=== PATIENT | female | born 1960 | race Caucasian/White ===

== ENCOUNTER 2021-09-30 09:19 | Outpatient (CLI) | payer OTHER, SELFPAY ==
[2021-09-30 09:30] LABS: Basophils Absolute Auto 0.08 K/mm3 (0.00-0.10); Eosinophils Absolute Auto 0.17 K/mm3 (0.02-0.50); Eosinophils Percent Auto 2.2 % (1.0-6.0); Hematocrit 44.6 % (35.0-49.0); Hemoglobin 14.3 g/dL (12.0-15.0); Immature Granulocyte Absolute 0.03 K/mm3 (0.00-0.00); Immature Granulocyte Percent A 0.4 % (0.0-0.0); Lymphocytes Percent Auto 35.9 % (18.0-42.0); Mean Corpuscular HGB Conc 32.1 g/dL (32.0-36.0); Mean Corpuscular Hemoglobin 28.1 pg (27.0-31.0); Mean Corpuscular Volume 87.8 fL (78.0-102.0); Mean Platelet Volume 10.1 fl (9.2-11.8); Monocytes Absolute Auto 0.41 K/mm3 (0.10-0.90); Monocytes Percent Auto 5.2 % (2.0-11.0); Neutrophils Absolute Auto 4.3 K/mm3 (1.7-7.2); Neutrophils Percent Auto 55.3 % (50.0-70.0); Platelet Count Result 254 K/mm3 (150-420); Red Blood Count 5.08 M/mm3 (4.20-5.40); Red Cell Distribution Width 13.2 % (11.6-14.4); White Blood Count 7.8 K/mm3 (4.8-10.8)
[2021-09-30 09:44] LABS: Hemoglobin A1C 9.3 % (<5.7)
[2021-09-30 10:18] LABS: Alanine Aminotransferase 112 U/L (14-59); Albumin Level 3.4 g/dL (3.4-5.0); Alkaline Phosphatase 107 U/L (46-116); Anion Gap 7 mmol/L (8-16); Aspartate Amino Transferase 66 U/L (15-37); Bilirubin,Total 0.5 mg/dL (0.00-1.00); Blood Urea Nitrogen 11 mg/dL (7-18); Calcium 9.1 mg/dL (8.5-10.1); Carbon Dioxide 30 mmol/L (21-32); Chloride 102 mmol/L (98-108); Cholesterol 228 mg/dL (0-200); Estimated Glomerular Filt Rate > 60; Glucose 221 mg/dL (70-99); HDL Direct 43 mg/dL (40-60); LDL Cholesterol Calculated 155 mg/dL (<130); Osmolality Calculated 294 mOsm/kg (285-295); Potassium 4.1 mmol/L (3.5-5.1); Sodium 139 mmol/L (136-145); Total Protein 6.4 g/dL (6.4-8.2); Triglycerides 151 mg/dL (0-150)
== END 2021-09-30 09:20 | disposition home or self-care (01) ==
LOC: CHSLAB 09:21
PROVIDERS: PCP Family Medicine; Visit Provider Family Medicine
DX: Z00.00 Encounter for general adult medical examination without abnormal findings (principal); Z13.6 Encounter for screening for cardiovascular disorders; E11.9 Type 2 diabetes mellitus without complications
CPT/HCPCS: 36415; 80053; 80061; 83036; 85025

== ENCOUNTER 2024-03-02 15:16 | Outpatient (NON) | payer OTHER, SELFPAY | END 2024-03-02 15:17 | disposition home or self-care (01) | LOC: CHSLAB 15:21 | PROVIDERS: Visit Provider Nurse Practitioner Family | DX: Z12.4 Encounter for screening for malignant neoplasm of cervix (principal); Z11.51 Encounter for screening for human papillomavirus (HPV); Z11.8 Encounter for screening for other infectious and parasitic diseases | CPT/HCPCS: 87491; 87591; 87624; 88141; 88175; G0145 ==

== ENCOUNTER 2024-03-09 12:12 | Outpatient (CLI) | payer OTHER, SELFPAY ==
--- NOTE | ~2024-03-09 | DEXA_ITS ---
? Bone Density Report? Name:? MULLIGAN NANCY C Patient ID:??? [id number] Age:? 63 Sex:? Female Ethnicity:? White Date of : 1960 Indication: postmenopausal; screening for osteoporosis; height loss; Referring Provider: TAMMIE TINOCO Study: Bone densitometry was performed. Exam Date: March 09, 2024 Accession number: [id number] Bone Density: Region? BMD??? T-score? Z-score?? Classification AP Spine(L1-L4)? 0.975?? -0.7?1.2? Normal Femoral Neck (Left)? 0.866??? 0.2? 1.7? Normal Total Hip (Left)? 0.992??? 0.4? 1.7? Normal Femoral Neck (Right)? 0.808?? -0.4? 1.2? Normal Total Hip (Right)? 0.989??? 0.4? 1.6? Normal Femoral Neck Mean? 0.837?? -0.1? 1.4? Normal Total Hip Mean? 0.990??? 0.4? 1.7? Normal World Health Organization criteria for BMD impression classify patients as: Normal (T-score at or above -1.0), Osteopenia (T-score between -1.0 and -2.5), or Osteoporosis (T-score at or below -2.5). 10-year Fracture Risk: FRAX not reported because: ? All T-scores for Spine Total, Hip Total, Femoral Neck at or above -1.0 Clinical Information Provided by Patient: Has used the following medications: Vitamin D Patient maximum height was 66 Menopause Age: 51 No regular weight bearing exercise Onset of menses at age 11 Number of children 4 Impression: The patient has normal bone mass. Discussion: BONE DENSITY IS ABOVE THE MINIMUM DESIRABLE LEVEL AT ALL SKELETAL SITES TESTED. This patient?s bone mineral density is above the minimum desirable level (T- score -1.0 or better) at all sites measured. The patient should follow a healthful lifestyle (good nutrition with adequate calcium and vitamin D, and appropriate weight-bearing exercise). Follow-Up: Consider repeating this study in 5 years or sooner if there is some new clinical indication. Reported by: Dr. Ramon Dunn on :12:00 PM. PEE
--- NOTE | ~2024-03-09 | MM_ITS ---
EXAMINATION: MM screening bryan BI w agus HISTORY: Screening mammogram TECHNIQUE: Craniocaudal and mediolateral oblique 3-D tomosynthesis images were obtained and synthetic 2-D images were generated. CAD analysis was submitted and interpreted. COMPARISON: 01/21/2019 bilateral screening mammogram BREAST PARENCHYMAL COMPOSITION: There are scattered areas of fibroglandular density. FINDINGS: There is no evidence of suspicious mass, calcification, or architectural distortion to sugg est malignancy in either breast. There has been no suspicious interval change. IMPRESSION: 1. No mammographic evidence of malignancy. 2. Recommend routine screening mammography in one year. BI-RADS Category 1: Negative Reviewed, dictated and finalized at location A.
== END 2024-03-09 12:13 | disposition home or self-care (01) ==
LOC: CHSIMG 12:13
PROVIDERS: PCP Nurse Practitioner Family; Visit Provider Nurse Practitioner Family
DX: Z12.31 Encounter for screening mammogram for malignant neoplasm of breast (principal); Z78.0 Asymptomatic menopausal state
CPT/HCPCS: 77063; 77067; 77080

== ENCOUNTER 2024-08-18 07:00 | Outpatient (NON) | payer OTHER, SELFPAY | END 2024-08-18 07:01 | disposition home or self-care (01) | PROVIDERS: PCP Family Medicine; Visit Provider Internal Medicine Gastroenterology | DX: K63.5 Polyp of colon (principal); Z86.0100 Personal history of colon polyps, unspecified | CPT/HCPCS: 88305 ==

== ENCOUNTER 2024-08-18 07:55 | Day surgery (SDC) | payer OTHER, SELFPAY ==
[2024-05-27 07:07] VITALS: BMI 35.4
[2024-08-09 11:39] VITALS: BMI 35.9
--- NOTE | 2024-08-17 16:13 | P.PNAN_ITS ---
Anes - Initial Pre Proc Eval Procedure: Operation Date: 08/18/24 10:00 Proposed Procedures p Diagnostic Colonoscopy - Hubert Corbett MD Date/Time: 08/17/24 16:13 Surgeon: Hubert Corbett MD Pre Op Diagnosis: Personal HX of colonic polyps Patient Data Age: 64 Gender: F Height: 1.68 m Weight: 101 kg Allergies Allergy/AdvReac Type Severity Reaction Status Date / Time shellfish derived Allergy Intermediate unknown Verified 08/18/24 08:49 Home Medications Medication Instructions Recorded Confirmed Type No Home Medications 08/18/24 08/18/24 History Patient hx anesthesia problems: none Family hx anesthesia problems: none Results Review: All pre-operative results and documents have been reviewed as part of the pre- operative evaluation. [facility] Past Medical History Medical History (Updated 08/18/24 @ 09:26 by Kye Mckeon DO) Acute sinusitis Borderline diabetes Encounter for lipid screening for cardiovascular disease Periodic health assessment, general screening, adult Surgical History Surgical History (Updated 08/17/24 @ 16:14 by Kye Mckeon DO) History of hysterectomy Family History Family History Mother Family history of lymphoma Mother Family history of lymphoma Other Family history of type 2 diabetes mellitus Social History Social History Smoking status: Never smoker Alcohol intake: current Substance use: never Substance use type: does not use Living arrangements: with family Gender identity (if verbalized by the patient): Female Spiritual care concerns: No Anes - Eval Final PreProcedure Day of Procedure 08/17/24 16:13 Patient weight: obese Heart: regular rate and rhythm Lungs: clear to auscultation Airway: Mallampati scale class II Neurological: alert and oriented Last oral intake: >/= 8 hours ASA classification: II Emergent: no Anesthetic plan: proceed Anesthesia type and monitoring: general GIVS and standard monitoring Results Review: All pre-operative results and documents have been reviewed as part of the pre- operative evaluation. Informed Consent: The patient's anesthetic plan and its attendant risks and benefits were discussed with the patient/family/POA. Questions were solicited and answers provided to the satisfaction of the patient/family/POA.
[2024-08-18 08:50] VITALS: BP 120/84; PULSE 62; RESP 16; TEMP 36.1; O2SAT 96
[2024-08-18 08:52] VITALS: BMI 36.1
[2024-08-18] MEDS: LACTATED RINGERS 1,000 ML 150 ML IV CONT (09:13)
[2024-08-18 09:16] LABS: Glucose Point of Care 115 mg/dl (65-105)
--- NOTE | 2024-08-18 09:22 | PM.HPGS ---
History of Present Illness History of Present Illness Consent: Risks, benefits, and alternatives have been discussed and questions answered. Patient agrees to proceed with procedure. Chief complaint: Personal HX of colonic polyps Narrative: Carley Lovell is a 64 year old female presents for screening colonoscopy. Patient has a history of colon polyps at time of most recent colonoscopy 6 years ago performed elsewhere. her current weight appetite bowel movements are normal. She has no abdominal pain. She has no bleeding. In January of this year had hysterectomy for endometrial cancer. Review of Systems Review of Systems: All systems reviewed & are unremarkable except as noted in HPI and below PMFSH Past Medical History Medical History (Updated 08/18/24 @ 09:24 by Hubert Corbett MD) Acute sinusitis Diabetes type 2, controlled Encounter for lipid screening for cardiovascular disease Periodic health assessment, general screening, adult Surgical History Surgical History (Updated 08/17/24 @ 16:14 by Kye Mckeon DO) History of hysterectomy Family History Family History Mother Family history of lymphoma Mother Family history of lymphoma Other Family history of type 2 diabetes mellitus Social History Social History Smoking status: Never smoker Alcohol intake: current Substance use: never Substance use type: does not use Living arrangements: with family Gender identity (if verbalized by the patient): Female Spiritual care concerns: No Meds Home Medications and Allergies Home Medications Medication Instructions Recorded Confirmed Type No Home Medications 08/18/24 08/18/24 History Allergies Allergy/AdvReac Type Severity Reaction Status Date / Time shellfish derived Allergy Intermediate unknown Verified 08/18/24 08:49 Vital Signs Vital Signs - 24 hr 08/18/24 08:50 Temperature 97 F L Pulse Rate 62 Respiratory Rate 16 Blood Pressure 120/84 Pulse Oximetry 96 Oxygen Delivery Room Air Exam Narrative: Physical exam reveals patient to be alert. Signs stable. HEENT is unremarkable. Patient is anicteric. Lungs are clear to auscultation and to percussion. heart is without murmur or sounds. Abdomen bowel sounds are present soft nontender with no organomegaly. Digital external rectal exam normal. Assessment and Plan Assessment and plan (1) History of colon polyps: Code(s): Z86.0100 - Personal history of colon polyps, unspecified Status: Acute Assessment and Plan: Has a history of colon polyps 5 years ago. Plan for surveillance colonoscopy at this time. Consider this at 5 year intervals.
[2024-08-18 10:38] VITALS: BP 100/64; PULSE 65; RESP 15; O2SAT 100
[2024-08-18 10:48] VITALS: BP 114/70; PULSE 60; RESP 16; O2SAT 98
[2024-08-18 10:58] VITALS: BP 124/79; PULSE 54; RESP 17; O2SAT 99
--- NOTE | 2024-08-18 14:37 | WPDANESPN ---
Anes - Prog Note Post-Op Date/Time: 08/18/24 14:37 Cardiovascular status: normal Respiratory status: normal Airway patency: baseline Mental status: baseline Post-Op hydration status: normal Vital Signs: Last Vital Signs Temp 36.1 C L 08/18/24 08:50 Pulse 54 L 08/18/24 10:58 Resp 17 08/18/24 10:58 BP 124/79 08/18/24 10:58 Pulse Ox 99 08/18/24 10:58 O2 Del Method Room Air 08/18/24 10:58 Pain Score (VAS): 0 I/O: Intake & Output 08/17/24 08/18/24 08/18/24 23:59 07:59 15:59 Intake Total 700 Balance 700 08/18/24 09:11 POC Capillary Glucose 115 H Post-procedural complaints: none Patient Feedback: Patient satisfied with anesthetic care. Other Findings: Patient vital signs back to baseline. Patient denies nausea and vomiting. Patient's pain under control. Patient OK for discharge.
== END 2024-08-18 11:05 | disposition home or self-care (01) ==
PROVIDERS: PCP Family Medicine; Visit Provider Internal Medicine Gastroenterology
PROC: 0DJD8ZZ Inspection of Lower Intestinal Tract, Via Natural or Artificial Opening Endoscopic (ICD-10-PCS; CPT 45378; principal; 2024-08-18 10:00)
DX: Z86.0100 Personal history of colon polyps, unspecified (principal); D12.5 Benign neoplasm of sigmoid colon; K57.30 Diverticulosis of large intestine without perforation or abscess without bleeding
CPT/HCPCS: 45378

== ENCOUNTER 2024-11-29 10:21 | Outpatient (CLI) | payer OTHER, MEDICARE, SELFPAY ==
[2024-11-29 10:40] LABS: Basophils Absolute Auto 0.09 K/mm3 (0.00-0.10); Basophils Percent Auto 1.1 % (0.0-1.0); Eosinophils Absolute Auto 0.17 K/mm3 (0.02-0.50); Hematocrit 41.9 % (35.0-42.0); Hemoglobin 13.2 g/dL (11.7-13.8); Immature Granulocyte Absolute 0.04 K/mm3 (0.00-0.00); Immature Granulocyte Percent A 0.5 % (0.0-0.0); Lymphocytes Absolute Auto 2.21 K/mm3 (1.10-4.50); Lymphocytes Percent Auto 26.2 % (18.0-42.0); Mean Corpuscular HGB Conc 31.5 g/dL (32-36); Mean Corpuscular Hemoglobin 27.1 pg (27.0-31.0); Mean Platelet Volume 9.9 fl (9.2-11.8); Monocytes Absolute Auto 0.57 K/mm3 (0.10-0.90); Monocytes Percent Auto 6.8 % (2.0-11.0); Neutrophils Absolute Auto 5.35 K/mm3 (1.70-7.20); Neutrophils Percent Auto 63.4 % (50.0-70.0); Platelet Count Result 253 K/mm3 (150-420); Red Blood Count 4.87 M/mm3 (4.20-5.40); Red Cell Distribution Width 13.6 % (11.6-14.4); White Blood Count 8.4 K/mm3 (4.8-10.8)
[2024-11-29 11:03] LABS: MALB Creatinine Ratio 11.1 mg/g (0-30); Microalbumin Urine Random < 13.0 mg/L
[2024-11-29 11:18] LABS: Alanine Aminotransferase 33 U/L (14-59); Albumin Level 3.6 g/dL (3.4-5.0); Alkaline Phosphatase 91 U/L (46-116); Anion Gap 7 mmol/L (4-12); Aspartate Amino Transferase 20 U/L (15-37); Bilirubin,Total 0.5 mg/dL (0.00-1.00); Blood Urea Nitrogen 14 mg/dL (7-18); Calcium 9.5 mg/dL (8.5-10.1); Carbon Dioxide 31 mmol/L (21-32); Chloride 104 mmol/L (98-108); Cholesterol 272 mg/dL (0-200); Estimated Glomerular Filt Rate > 60; Glucose 175 mg/dL (70-99); HDL Direct 64 mg/dL (40-60); LDL Cholesterol Calculated 175 mg/dL (<130); Osmolality Calculated 298 mOsm/kg (285-295); Potassium 4.4 mmol/L (3.5-5.1); Sodium 142 mmol/L (136-145); Total Protein 6.5 g/dL (6.4-8.2); Triglycerides 165 mg/dL (0-150)
== END 2024-11-29 10:22 | disposition home or self-care (01) ==
PROVIDERS: PCP Family Medicine; Visit Provider Family Medicine
DX: E11.9 Type 2 diabetes mellitus without complications (principal); Z86.0100 Personal history of colon polyps, unspecified
CPT/HCPCS: 36415; 80053; 80061; 82043; 85025